=== PATIENT | female | born 1970 ===

== ENCOUNTER 2020-07-10 13:10 | Outpatient (CLI) | payer OTHER ==
--- NOTE | 2020-07-17 09:28 | Mammography Report ---
BILATERAL DIGITAL SCREENING MAMMOGRAM 3D/2D: 07/10/2020 CLINICAL: Routine screening. Comparison is made to exams dated: 08/19/2012 mammogram, 06/04/2015 mammogram, and 02/05/2018 mammogram - [facility]. The tissue of both breasts is heterogeneously dense. This may lower th e sensitivity of mammography. No significant masses, calcifications, or other findings are seen in either breast. There has been no significant interval change. IMPRESSION: NEGATIVE There is no mammographic evidence of malignancy. A 1 year screening mammogram is recommended. This exam was interpreted at Station ID: [id number]. NOTE: For mammograms, a report in lay terms will be sent to the patient. Approximately 15% of breast malignancies will not be visualized mammographically. In the management of a palpable breast mass, a negative mammogram must not discourage biopsy of a clinically suspicious lesion. Electronically Signed By: Dajuan Solares M.D. aty/penrad:07/16/2020 16:48:12 ACR BI-RADS Category 1: Negative 3341F PARENCHYMAL PATTERN: (D) - The breast(s) demonstrate(s) heterogeneously dense fibroglandular michelle leon. BI-RADS CATEGORY: (1) - 1 RECOMMENDATION: (ANNUAL) - Recommend routine annual screening mammography. [id number] 1 year screening LATERALITY: (B)
== END 2020-07-10 13:11 | disposition home or self-care (01) ==
LOC: DI.N 13:10
DX: Z12.31 Encounter for screening mammogram for malignant neoplasm of breast (principal)